=== PATIENT | male | born 1955 | race Caucasian/White ===

== ENCOUNTER 2024-03-14 08:36 | Inpatient (IN) | payer MEDICARE, MEDICAID ==
[~2024-03-14] VITALS: Ht 167.6 cm; Wt 71.0 kg
[2024-03-14 09:46] LABS: BASOPHILS # (AUTO) 0.1 X10'3 (0-0.2); BASOPHILS % (AUTO) 1.5 % (0-1); EOSINOPHILS # (AUTO) 0.1 X10'3 (0-0.9); EOSINOPHILS % (AUTO) 2.3 % (0-6); LYMPHOCYTES # (AUTO) 0.7 X10'3 (1.1-4.8); LYMPHOCYTES % (AUTO) 10.9 % (21-51); MEAN CORPUSCULAR HGB CONC 32.7 g/dL (33.0-36.5); MEAN CORPUSCULAR VOLUME 91.6 FL (78-98); MEAN PLATELET VOLUME 8.9 FL (7.4-10.4); MONOCYTES # (AUTO) 0.6 X10'3 (0-0.9); MONOCYTES % (AUTO) 9.1 % (2-12); NEUTROPHILS # (AUTO) 4.7 X10'3 (1.8-7.7); NEUTROPHILS % (AUTO) 76.2 % (42-75); PLATELET COUNT 236 X10'3 (140-440); RED BLOOD COUNT 2.03 X10'6 (4.70-6.10); RED CELL DISTRIBUTION WIDTH 16.4 % (11.5-14.5); WHITE BLOOD COUNT 6.2 X10'3 (4.5-11.0)
[2024-03-14 09:51] LABS: ANION GAP 6 (8-16); BLOOD UREA NITROGEN 70 MG/DL (7-18); BUN/CREATININE RATIO 18.6 (10.0-20.0); CALCIUM 8.5 MG/DL (8.5-10.1); CHLORIDE 105 MMOL/L (99-107); CREATININE 3.76 MG/DL (0.60-1.10); HEMOGLOBIN 6.1 g/dl (14.0-17.9); POTASSIUM 4.1 MMOL/L (3.5-5.1); SODIUM 147 MMOL/L (135-145); TOTAL CARBON DIOXIDE 35.6 MMOL/L (24-32); eCRCL 17 ML/MIN; eGFR 16 ML/MIN
[2024-03-14 09:52] LABS: HEMATOCRIT 18.6 % (42.0-52.0)
[2024-03-14 10:00] LABS: GLUCOSE 47 MG/DL (70-104)
[2024-03-14] MEDS: dextrose 50%-water 50ml dispensing syringe IV ONE ×3 (10:05→12:54)
[2024-03-14 10:13] LABS: ANISOCYTOSIS 1+; PLATELET ESTIMATE NORMAL; TOTAL CELLS COUNTED 100
[2024-03-14 10:14] LABS: BURR CELLS 1+; ROULEAUX 1+; SCHISTOCYTES FEW; STOMATOCYTES FEW
[2024-03-14 11:03] LABS: ABG BASE EXCESS 8.1 mmol/L (-2.0-2.0); ABG HCO3 33.9 mmol/L (22.0-26.0); ABG PCO2 (T) 56.9 mmHg (35.0-48.0); ABG PH (T) 7.391 (7.340-7.440); ABG PO2 (T) 116.2 mmHg (75.0-100.0); ALLEN'S TEST POSITIVE; FCOHb 0.4 % (0.0-3.9); FLOW 5 L/min; FMetHb 0.3 % (0.0-1.5); FO2Hb 97.3 % (94-97); MODE NASAL CANNULA; PATIENT TEMPERATURE 36.7; TOTAL HEMOGLOBIN 6.5 G/dl (14.0-17.9)
[2024-03-14 12:10] LABS: OCCULT BLOOD STOOL POSITIVE (Neg)
[2024-03-14 12:37] VITALS: BP 105/63; PULSE 66; RESP 12; TEMP 97.5
[2024-03-14 12:52] VITALS: BP 107/71; PULSE 68; RESP 13; TEMP 97.5
[2024-03-14 13:07] VITALS: BP 109/53; PULSE 69; RESP 13; TEMP 97.6
[2024-03-14] MEDS ORDERED: sodium chloride inj. 154 MEQ in Dextrose 10%-water IV solution 961.5 ML IV SCH (13:15)
[2024-03-14] MEDS ORDERED: magnesium sulf-water 2g/50mL 50 ML IV PRN (13:45)
[2024-03-14] MEDS ORDERED: mag hydrox/Alum hydrox/simeth 30ml oral suspension PO PRN (13:45)
[2024-03-14] MEDS ORDERED: ondansetron/PF 4mg/2ml inj IV PRN (13:45)
[2024-03-14] MEDS ORDERED: potassium Cl 40MEQ/1/2NS 520ml 520 ML IV PRN (13:45)
[2024-03-14] MEDS ORDERED: magnesium sulf-water 4G/100mL 100 ML IV PRN (13:45)
[2024-03-14] MEDS ORDERED: magnesium Cl slow-release 64mg tablet PO PRN (13:45)
[2024-03-14] MEDS ORDERED: potassium Cl 20 mEq SR tablet PO PRN ×2 (13:45)
[2024-03-14] MEDS ORDERED: acetaminophen 325mg tablet PO PRN (13:45)
[2024-03-14] MEDS ORDERED: morphine 2 MG/ML inj. syringe IV PRN ×2 (13:45)
[2024-03-14] MEDS ORDERED: magnesium hydroxide 30ml (MOM) UD suspension PO PRN (13:45)
[2024-03-14] MEDS ORDERED: diphenhydrAMINE 25mg capsule PO PRN (14:50)
[2024-03-14] MEDS ORDERED: glucagon, human recombinant 1mg kit SUBCUT PRN (15:05)
[2024-03-14] MEDS ORDERED: albuterol 2.5 MG/3 ML nebule NEB PRN (15:05)
[2024-03-14] MEDS ORDERED: DEXTROSE 15 GM of carb/4 tabs (each vial/BOTTLE has 4 tablets) PO PRN (15:05)
[2024-03-14] MEDS ORDERED: dextrose 50%-water 50ml dispensing syringe IV PRN (15:05)
[2024-03-14] MEDS: dextrose 5%-1/2 normal saline 1,000 ML IV SCH (15:29)
[2024-03-14 15:50] VITALS: BP 90/50; PULSE 64; RESP 16; TEMP 96.5; O2SAT 91
[2024-03-14] MEDS: CefTRIAXone/D5W-Rocephin 1gm 50 ML IV SCH (16:16)
[2024-03-14] MEDS: INSULIN LISPRO 100 UNIT/ML INSULN.PEN MULTI-DOSE SQ SCH (17:00)
[2024-03-14 17:06] LABS: INR 1.3 INR
[2024-03-14 17:06] LABS: BASOPHILS # (AUTO) 0.1 X10'3 (0-0.2); EOSINOPHILS # (AUTO) 0.1 X10'3 (0-0.9); EOSINOPHILS % (AUTO) 1.8 % (0-6); HEMOGLOBIN 7.5 g/dl (14.0-17.9); LYMPHOCYTES % (AUTO) 15.8 % (21-51); MEAN CORPUSCULAR HEMOGLOBIN 30.1 PG (27.0-31.0); MEAN CORPUSCULAR HGB CONC 32.7 g/dL (33.0-36.5); MEAN CORPUSCULAR VOLUME 92.1 FL (78-98); MEAN PLATELET VOLUME 9.1 FL (7.4-10.4); MONOCYTES # (AUTO) 0.8 X10'3 (0-0.9); MONOCYTES % (AUTO) 12.3 % (2-12); NEUTROPHILS # (AUTO) 4.5 X10'3 (1.8-7.7); NEUTROPHILS % (AUTO) 69.1 % (42-75); PLATELET COUNT 229 X10'3 (140-440); RED CELL DISTRIBUTION WIDTH 15.8 % (11.5-14.5); WHITE BLOOD COUNT 6.5 X10'3 (4.5-11.0)
[2024-03-14] MEDS: pantoprazole 40MG/NS 100ML BAG 100 ML IV SCH (17:07)
[2024-03-14 17:08] LABS: APTT 29 SECONDS (22-32)
[2024-03-14] MEDS: LORazepam 1 MG tablet PO PRN (17:08)
[2024-03-14 17:11] LABS: HEMOGLOBIN A1C 5.4 % (4.5-6.2)
[2024-03-14 17:24] LABS: MAGNESIUM 1.8 MG/DL (1.5-2.4); PHOSPHORUS 4.7 MG/DL (2.3-4.5)
[2024-03-14] MEDS: dextrose 50%-water 50ml dispensing syringe IV PRN (17:36)
[2024-03-14 17:38] LABS: % IRON SATURATION 42 % (11-46); FERRITIN 372 NG/ML (26-388); IRON 80 UG/DL (53-167); TOTAL IRON BINDING CAPACITY 190 UG/DL (259-388)
[2024-03-14] MEDS: K and/or MAG REPLACEMENT MC SCH (20:00)
[2024-03-14 20:14] LABS: HEMATOCRIT 22.3 % (42.0-52.0); HEMOGLOBIN 7.4 g/dl (14.0-17.9); MEAN CORPUSCULAR HEMOGLOBIN 30.5 PG (27.0-31.0); MEAN CORPUSCULAR HGB CONC 33.1 g/dL (33.0-36.5); MEAN CORPUSCULAR VOLUME 92.1 FL (78-98); MEAN PLATELET VOLUME 9.1 FL (7.4-10.4); PLATELET COUNT 230 X10'3 (140-440); RED BLOOD COUNT 2.42 X10'6 (4.70-6.10); RED CELL DISTRIBUTION WIDTH 15.9 % (11.5-14.5); WHITE BLOOD COUNT 6.6 X10'3 (4.5-11.0)
[2024-03-14] MEDS: insulin glargine (Lantus) pen - multi-dose SQ SCH (21:00)
[2024-03-14 22:00] VITALS: BP 101/54; PULSE 98; RESP 22; TEMP 98.4; O2SAT 95
[2024-03-14] MEDS: DEXTROSE 15 GM of carb/4 tabs (each vial/BOTTLE has 4 tablets) PO PRN (22:05)
[2024-03-14] MEDS: cyclobenzaprine 10mg tablet PO PRN (22:56)
[2024-03-15] VITALS (14 sets, daily range): BP systolic 105–119; BP diastolic 46–70; PULSE 62–98; RESP 12–22; TEMP 97.4–98; O2SAT 91–98
[2024-03-15 06:36] LABS: BASOPHILS # (AUTO) 0.1 X10'3 (0-0.2); EOSINOPHILS # (AUTO) 0.2 X10'3 (0-0.9); HEMATOCRIT 22.6 % (42.0-52.0); HEMOGLOBIN 7.4 g/dl (14.0-17.9); LYMPHOCYTES # (AUTO) 1.2 X10'3 (1.1-4.8); LYMPHOCYTES % (AUTO) 20.3 % (21-51); MEAN CORPUSCULAR HEMOGLOBIN 30.3 PG (27.0-31.0); MEAN CORPUSCULAR HGB CONC 32.6 g/dL (33.0-36.5); MEAN CORPUSCULAR VOLUME 92.8 FL (78-98); MEAN PLATELET VOLUME 9.1 FL (7.4-10.4); MONOCYTES # (AUTO) 0.8 X10'3 (0-0.9); MONOCYTES % (AUTO) 12.9 % (2-12); NEUTROPHILS # (AUTO) 3.7 X10'3 (1.8-7.7); NEUTROPHILS % (AUTO) 62.8 % (42-75); PLATELET COUNT 214 X10'3 (140-440); RED BLOOD COUNT 2.43 X10'6 (4.70-6.10); RED CELL DISTRIBUTION WIDTH 16.4 % (11.5-14.5)
[2024-03-15 06:55] LABS: ALANINE AMINOTRANSFERASE 28 U/L (12-78); ALBUMIN 2.8 G/DL (3.4-5.0); ALKALINE PHOSPHATASE 49 IU/L (46-116); ANION GAP 3 (8-16); ASPARTATE AMINO TRANSFERASE 27 U/L (10-37); BILIRUBIN,TOTAL 0.9 MG/DL (0.1-1.0); BLOOD UREA NITROGEN 69 MG/DL (7-18); BUN/CREATININE RATIO 21.2 (10.0-20.0); CALCIUM 8.1 MG/DL (8.5-10.1); CHLORIDE 107 MMOL/L (99-107); CREATININE 3.25 MG/DL (0.60-1.10); GLUCOSE 144 MG/DL (70-104); SODIUM 146 MMOL/L (135-145); TOTAL CARBON DIOXIDE 36.5 MMOL/L (24-32); TOTAL PROTEIN 5.7 G/DL (6.4-8.2); eCRCL 19 ML/MIN; eGFR 19 ML/MIN
[2024-03-15] MEDS ORDERED: fentaNYL/PF 50MCG/1 ML 2ML syringe ONE (10:25)
[2024-03-15] MEDS ORDERED: MIDAZolam 1 MG/ML 5ML VIAL ONE (10:26)
[2024-03-15] MEDS ORDERED: LIDOcaine 2% Viscous 15ml cup ONE (10:26)
[2024-03-16] VITALS (13 sets, daily range): BP systolic 91–115; BP diastolic 49–83; PULSE 68–79; RESP 15–21; TEMP 97.9–99.1; O2SAT 90–100
[2024-03-16 06:28] LABS: BASOPHILS % (AUTO) 0.8 % (0-1); EOSINOPHILS # (AUTO) 0.3 X10'3 (0-0.9); EOSINOPHILS % (AUTO) 5.7 % (0-6); LYMPHOCYTES # (AUTO) 0.6 X10'3 (1.1-4.8); LYMPHOCYTES % (AUTO) 11.4 % (21-51); MEAN CORPUSCULAR HEMOGLOBIN 29.6 PG (27.0-31.0); MEAN CORPUSCULAR VOLUME 92.8 FL (78-98); MEAN PLATELET VOLUME 8.4 FL (7.4-10.4); MONOCYTES # (AUTO) 0.6 X10'3 (0-0.9); MONOCYTES % (AUTO) 10.9 % (2-12); NEUTROPHILS # (AUTO) 3.8 X10'3 (1.8-7.7); NEUTROPHILS % (AUTO) 71.2 % (42-75); PLATELET COUNT 226 X10'3 (140-440); RED BLOOD COUNT 2.31 X10'6 (4.70-6.10); WHITE BLOOD COUNT 5.4 X10'3 (4.5-11.0)
[2024-03-16 06:38] LABS: ALANINE AMINOTRANSFERASE 32 U/L (12-78); ALBUMIN 2.5 G/DL (3.4-5.0); ALBUMIN/GLOBULIN RATIO 0.9 (1.1-1.5); ALKALINE PHOSPHATASE 52 IU/L (46-116); ANION GAP 2 (8-16); ASPARTATE AMINO TRANSFERASE 18 U/L (10-37); BILIRUBIN,TOTAL 0.8 MG/DL (0.1-1.0); BLOOD UREA NITROGEN 61 MG/DL (7-18); BUN/CREATININE RATIO 20.9 (10.0-20.0); CHLORIDE 105 MMOL/L (99-107); CREATININE 2.92 MG/DL (0.60-1.10); GLUCOSE 191 MG/DL (70-104); HEMATOCRIT 21.4 % (42.0-52.0); HEMOGLOBIN 6.8 g/dl (14.0-17.9); POTASSIUM 4.2 MMOL/L (3.5-5.1); SODIUM 143 MMOL/L (135-145); TOTAL CARBON DIOXIDE 35.9 MMOL/L (24-32); TOTAL PROTEIN 5.4 G/DL (6.4-8.2); eCRCL 22 ML/MIN; eGFR 22 ML/MIN
[2024-03-16] MEDS ORDERED: METO-395 PO (13:50)
[2024-03-16] MEDS ORDERED: ATOR40TA PO (13:50)
[2024-03-16] MEDS ORDERED: DOXE10CA3 PO (13:50)
[2024-03-16] MEDS ORDERED: ISOS30TA84 PO (13:50)
[2024-03-16] MEDS ORDERED: FURO-150 PO (13:50)
[2024-03-16] MEDS ORDERED: FLO0.4C PO (13:50)
[2024-03-16] MEDS ORDERED: AMIO200T27 PO (13:50)
[2024-03-16 15:02] LABS: BASOPHILS % (AUTO) 0.8 % (0-1); EOSINOPHILS # (AUTO) 0.3 X10'3 (0-0.9); EOSINOPHILS % (AUTO) 6.3 % (0-6); HEMATOCRIT 26.7 % (42.0-52.0); HEMOGLOBIN 8.6 g/dl (14.0-17.9); LYMPHOCYTES # (AUTO) 0.5 X10'3 (1.1-4.8); LYMPHOCYTES % (AUTO) 10.1 % (21-51); MEAN CORPUSCULAR HEMOGLOBIN 29.1 PG (27.0-31.0); MEAN CORPUSCULAR HGB CONC 32.2 g/dL (33.0-36.5); MEAN CORPUSCULAR VOLUME 90.4 FL (78-98); MEAN PLATELET VOLUME 8.4 FL (7.4-10.4); MONOCYTES # (AUTO) 0.6 X10'3 (0-0.9); MONOCYTES % (AUTO) 10.6 % (2-12); NEUTROPHILS % (AUTO) 72.2 % (42-75); PLATELET COUNT 245 X10'3 (140-440); RED BLOOD COUNT 2.95 X10'6 (4.70-6.10); WHITE BLOOD COUNT 5.5 X10'3 (4.5-11.0)
[2024-03-16] MEDS ORDERED: APIX5TAB5 PO (15:37)
[2024-03-16] MEDS ORDERED: EMPA10TA PO (15:37)
[2024-03-16] MEDS ORDERED: ASPI-1265 PO (15:37)
[2024-03-16] MEDS ORDERED: APIX5TAB3 PO (15:40)
[2024-03-16] MEDS: clopidogrel 75mg tablet PO SCH (18:31)
[2024-03-16] MEDS: aspirin 81mg tab.chew PO SCH (18:31)
[2024-03-16] MEDS: amiodarone 200mg tablet PO SCH (20:37)
[2024-03-17] VITALS (8 sets, daily range): BP systolic 92–127; BP diastolic 43–66; PULSE 58–74; RESP 13–20; TEMP 98.1–98.8; O2SAT 94–100
[2024-03-17] MEDS: acetaminophen 325mg tablet PO PRN (04:32)
[2024-03-17 06:48] LABS: BASOPHILS % (AUTO) 0.9 % (0-1); EOSINOPHILS # (AUTO) 0.4 X10'3 (0-0.9); EOSINOPHILS % (AUTO) 7.8 % (0-6); HEMATOCRIT 25.5 % (42.0-52.0); HEMOGLOBIN 8.3 g/dl (14.0-17.9); LYMPHOCYTES # (AUTO) 0.7 X10'3 (1.1-4.8); LYMPHOCYTES % (AUTO) 15.3 % (21-51); MEAN CORPUSCULAR HEMOGLOBIN 29.6 PG (27.0-31.0); MEAN CORPUSCULAR HGB CONC 32.5 g/dL (33.0-36.5); MEAN CORPUSCULAR VOLUME 91.2 FL (78-98); MEAN PLATELET VOLUME 8.4 FL (7.4-10.4); MONOCYTES # (AUTO) 0.6 X10'3 (0-0.9); MONOCYTES % (AUTO) 12.6 % (2-12); NEUTROPHILS # (AUTO) 3.1 X10'3 (1.8-7.7); NEUTROPHILS % (AUTO) 63.4 % (42-75); PLATELET COUNT 231 X10'3 (140-440); RED BLOOD COUNT 2.79 X10'6 (4.70-6.10); RED CELL DISTRIBUTION WIDTH 17.1 % (11.5-14.5); WHITE BLOOD COUNT 4.9 X10'3 (4.5-11.0)
[2024-03-17 07:06] LABS: ALANINE AMINOTRANSFERASE 25 U/L (12-78); ALBUMIN 2.5 G/DL (3.4-5.0); ALBUMIN/GLOBULIN RATIO 0.9 (1.1-1.5); ALKALINE PHOSPHATASE 54 IU/L (46-116); ANION GAP 4 (8-16); ASPARTATE AMINO TRANSFERASE 12 U/L (10-37); BILIRUBIN,TOTAL 0.7 MG/DL (0.1-1.0); BLOOD UREA NITROGEN 50 MG/DL (7-18); BUN/CREATININE RATIO 20.6 (10.0-20.0); CHLORIDE 106 MMOL/L (99-107); CREATININE 2.43 MG/DL (0.60-1.10); GLUCOSE 135 MG/DL (70-104); POTASSIUM 4.3 MMOL/L (3.5-5.1); SODIUM 143 MMOL/L (135-145); TOTAL CARBON DIOXIDE 33.1 MMOL/L (24-32); TOTAL PROTEIN 5.3 G/DL (6.4-8.2); eCRCL 26 ML/MIN; eGFR 27 ML/MIN
[2024-03-17] MEDS: tamsulosin 0.4mg capsule PO SCH (07:47)
[2024-03-17] MEDS: EMPAGLIFLOZIN 10 MG TABLET PO SCH (07:47)
[2024-03-17] MEDS: isosorbide mononitrate 30mg tab.SR.24H PO SCH (07:47)
[2024-03-17] MEDS: metoprolol succinate 25mg (24-HOUR) SR. Tablet PO SCH (07:47)
[2024-03-17] MEDS: atorvastatin 20mg tablet PO SCH (07:48)
[2024-03-17] MEDS: pantoprazole 40mg Tablet.DR PO SCH ×2 (07:48→15:15)
[2024-03-17] MEDS: furosemide 20MG tablet PO SCH ×2 (07:48→10:45)
[2024-03-17] MEDS ORDERED: BUPR2TAB11 SL (11:38)
[2024-03-17 13:49] LABS: BFSOURCE RIGHT PLEURAL FLD; PLEURAL FLUID PH 7.414 (7.63-7.65)
[2024-03-17 14:01] LABS: GLUCOSE,BODY FLUID 185 MG/DL; LDH,BODY FLUID 99 U/L; TOTAL PROTEIN,BODY FLUID < 2.0 G/DL
[2024-03-17] MEDS: furosemide 40mg/4ml inj IV ONE (14:15)
[2024-03-17 15:11] LABS: BFAPPEAR HAZY; BFCOLOR YELLOW; BFSOURCE RIGHT PLEURAL FLD; BFVOLUME 50 ML
[2024-03-17 15:12] LABS: BF MESOTHELIAL CELLS MANY; BF RBC COUNT 730 /CU MM; BF WBC COUNT 265 /CU MM (0-1000); LYMPHOCYTES,BODY FLUID 49 %; MONOCYTES,BODY FLUID 26 %; NEUTROPHILS,BODY FLUID 25 %
[2024-03-17] MEDS ORDERED: furosemide 20 MG/2 ML vial IV SCH (20:00)
[2024-03-17] MEDS: BUPRENORPHINE 2 MG SL SCH (21:00)
[2024-03-18 04:49] LABS: BASOPHILS % (AUTO) 0.6 % (0-1); EOSINOPHILS # (AUTO) 0.2 X10'3 (0-0.9); EOSINOPHILS % (AUTO) 4.9 % (0-6); HEMATOCRIT 24.4 % (42.0-52.0); HEMOGLOBIN 7.9 g/dl (14.0-17.9); LYMPHOCYTES # (AUTO) 0.4 X10'3 (1.1-4.8); MEAN CORPUSCULAR HEMOGLOBIN 29.5 PG (27.0-31.0); MEAN CORPUSCULAR HGB CONC 32.2 g/dL (33.0-36.5); MEAN CORPUSCULAR VOLUME 91.6 FL (78-98); MEAN PLATELET VOLUME 8.3 FL (7.4-10.4); MONOCYTES # (AUTO) 0.5 X10'3 (0-0.9); MONOCYTES % (AUTO) 10.8 % (2-12); NEUTROPHILS # (AUTO) 3.4 X10'3 (1.8-7.7); NEUTROPHILS % (AUTO) 74.7 % (42-75); PLATELET COUNT 218 X10'3 (140-440); RED BLOOD COUNT 2.66 X10'6 (4.70-6.10); RED CELL DISTRIBUTION WIDTH 17.2 % (11.5-14.5); WHITE BLOOD COUNT 4.6 X10'3 (4.5-11.0)
[2024-03-18 05:02] LABS: ALANINE AMINOTRANSFERASE 23 U/L (12-78); ALBUMIN 2.5 G/DL (3.4-5.0); ALBUMIN/GLOBULIN RATIO 0.9 (1.1-1.5); ALKALINE PHOSPHATASE 52 IU/L (46-116); ANION GAP -1 (8-16); ASPARTATE AMINO TRANSFERASE 11 U/L (10-37); BILIRUBIN,TOTAL 0.7 MG/DL (0.1-1.0); BLOOD UREA NITROGEN 45 MG/DL (7-18); BUN/CREATININE RATIO 18.2 (10.0-20.0); CALCIUM 8.3 MG/DL (8.5-10.1); CHLORIDE 106 MMOL/L (99-107); CREATININE 2.47 MG/DL (0.60-1.10); GLUCOSE 128 MG/DL (70-104); POTASSIUM 4.2 MMOL/L (3.5-5.1); SODIUM 143 MMOL/L (135-145); TOTAL CARBON DIOXIDE 37.6 MMOL/L (24-32); TOTAL PROTEIN 5.3 G/DL (6.4-8.2); eCRCL 25 ML/MIN; eGFR 26 ML/MIN
[2024-03-18 06:00] VITALS: BP 113/58; PULSE 66; RESP 16; TEMP 98.8; O2SAT 99
[2024-03-18] MEDS ORDERED: BUPRENORPHINE HCL 2 MG SL SCH (08:00)
[2024-03-18] MEDS: metoprolol succinate 25mg (24-HOUR) SR. Tablet PO SCH (08:40)
[2024-03-18] MEDS: furosemide 40mg/4ml inj IV ONE (09:21)
[2024-03-18 10:00] VITALS: BP 116/53; PULSE 76; RESP 18; TEMP 98; O2SAT 97
[2024-03-18] MEDS: acetaZOLAMIDE IV 500mg inj IV ONE (11:50)
[2024-03-18 11:56] LABS: CHOL/HDL RATIO 2.3 (0.00-4.99); CHOLESTEROL 116 MG/DL (0-200); FREE T4 (FREE THYROXINE) 1.06 NG/DL (0.73-1.40); HDL CHOLESTEROL 51 MG/DL (35-60); LDL CHOLESTEROL 53 MG/DL (50-100); THYROID STIMULATING HORMONE 7.66 ulU/ml (0.34-4.50); TRIGLYCERIDES 85 MG/DL (20-135)
[2024-03-18] MEDS ORDERED: cloNIDine 0.1 mg tablet PO SCH (16:00)
[2024-03-18] MEDS ORDERED: acetaZOLAMIDE 250mg tablet PO SCH (20:00)
[2024-03-18] MEDS ORDERED: sacubitril/valsartan 24mg-26mg tablet PO SCH (20:00)
[2024-03-19] MEDS ORDERED: traZODone 50mg tablet PO PRN (14:50)
== END 2024-03-18 12:15 | DRG 377 ==
LOC: ER 08:37 → ED HOLD 12:02 → UNDOADMIN 12:02 → ED HOLD 13:40 → ORTHO 4S 13:40 → ED HOLD 13:53 → ORTHO 4S 13:53
PROVIDERS: ADMIT Family Medicine; ATTEND Family Medicine
PROC: 0DB78ZX Excision of Stomach, Pylorus, Via Natural or Artificial Opening Endoscopic, Diagnostic (ICD-10-PCS; 2024-03-15)
PROC: 0W993ZZ Drainage of Right Pleural Cavity, Percutaneous Approach (ICD-10-PCS; principal; 2024-03-17)
DX: K29.71 Gastritis, unspecified, with bleeding (principal); I50.23 Acute on chronic systolic (congestive) heart failure; J69.0 Pneumonitis due to inhalation of food and vomit; I13.0 Hypertensive heart and chronic kidney disease with heart failure and stage 1 through stage 4 chronic kidney disease, or unspecified chronic kidney disease; N18.4 Chronic kidney disease, stage 4 (severe); J96.10 Chronic respiratory failure, unspecified whether with hypoxia or hypercapnia; J91.8 Pleural effusion in other conditions classified elsewhere; N17.9 Acute kidney failure, unspecified; Z66 Do not resuscitate; I48.0 Paroxysmal atrial fibrillation; I25.10 Atherosclerotic heart disease of native coronary artery without angina pectoris; J44.9 Chronic obstructive pulmonary disease, unspecified; E11.649 Type 2 diabetes mellitus with hypoglycemia without coma; E11.22 Type 2 diabetes mellitus with diabetic chronic kidney disease; D50.0 Iron deficiency anemia secondary to blood loss (chronic); G89.29 Other chronic pain; M54.9 Dorsalgia, unspecified; Z87.891 Personal history of nicotine dependence; Z79.01 Long term (current) use of anticoagulants
CPT/HCPCS: 32555; 36415; 36430; 36600; 43239; 71045; 71250; 74176; 80048; 80053; 80061; 82140; 82272; 82728; 82803; 82945; 82948; 83036; 83540; 83550; 83605; 83615; 83735; 83986; 84100; 84145; 84157; 84439; 84443; 85007; 85018; 85025; 85027; 85610; 85730; 86885; 86900; 86901; 86920; 87040; 87070; 87075; 87081; 89051; 93005; 94760; 96374; 97116; 97161; 97530; 99152; 99285; A4620; A6590; G0378; J0696; J1120; J1815; J1940; J2250; J2470; J3010; J3490; J7030; J7040; J7070; P9016